=== PATIENT | female | born 1985 | race African-American/Black ===

== ENCOUNTER 2017-11-05 08:26 | Emergency (ER) | payer MEDICAID, OTHER ==
[~2017-11-05] VITALS: Ht 154.9 cm; Wt 59.0 kg
[~2017-11-05 08:26] MED LIST: DEPO-PROVERA
[2017-11-05 08:41] VITALS: BP 115/71
== END 2017-11-05 10:22 | disposition left against medical advice (07) ==
LOC: ER 08:44
DX: Z53.21 Procedure and treatment not carried out due to patient leaving prior to being seen by health care provider (principal)